=== PATIENT | female | born 1955 | race African-American/Black ===

== ENCOUNTER 2022-11-06 11:53 | Emergency (ER) | payer MEDICARE ==
[~2022-11-06] VITALS: Ht 157.5 cm; Wt 95.0 kg
[2022-11-06 14:07] LABS: HEMATOCRIT. 38.6 % (36.0-48.0); HEMOGLOBIN. 12.8 g/dL (12.0-16.0); LYMPHOCYTES % 51.8 % (20.0-50.0); MEAN CORPUSCULAR HEMOGLOBIN 31.1 pg (28.0-32.0); MEAN PLATELET VOLUME 8.6 fl (7.4-10.4); MONOCYTES % 9.7 % (2.0-8.0); NEUTROPHILS % 34.5 % (40.0-76.0); PLATELET 224 x1000/uL (130-400); RED BLOOD CELL COUNT 4.11 mill/uL (4.2-5.4); RED CELL DISTRIBUTION WIDTH 13.7 % (11.6-14.6)
[2022-11-06 14:15] LABS: CHLORIDE 108 mEq/L (98-107)
[2022-11-06 15:08] VITALS: BP 138/6
== END 2022-11-06 15:23 | disposition home or self-care (01) ==
LOC: ER 11:53
DX: R00.2 Palpitations (principal)
CPT/HCPCS: 36415; 71045; 80053; 84443; 84484; 85025; 93005; 99285